=== PATIENT | female | born 1950 | race Two or more races ===

== ENCOUNTER 2017-05-24 17:40 | Emergency (ER) | payer MEDICARE ==
[~2017-05-24] VITALS: Ht 162.6 cm; Wt 64.0 kg
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
--- NOTE | 2017-05-24 18:16 | NUR ---
PT SENT TO CT
--- NOTE | 2017-05-24 20:00 | NUR ---
PT OK TO DISCHARGE PER DR GERMAN. Patient discharged to home in stable condition. Written and verbal after care instructions given. Patient verbalizes understanding of instruction.Patient is awake and alert to self, day, and place. PT ambulatory with a steady gait
[2017-05-24 20:01] VITALS: BP 142/89
== END 2017-05-24 20:01 | disposition home or self-care (01) ==
LOC: ER 17:42
DX: S02.2XXA Fracture of nasal bones, initial encounter for closed fracture (principal); V43.62XA Car passenger injured in collision with other type car in traffic accident, initial encounter; Y93.89 Activity, other specified; Y92.89 Other specified places as the place of occurrence of the external cause; Y99.9 Unspecified external cause status
CPT/HCPCS: 70450; 70486; 72125; 99284; A4606; Z7610